=== PATIENT | female | born 1975 | race Caucasian/White ===

== ENCOUNTER 2019-01-23 13:15 | Outpatient (CLI) | payer OTHER | END 2019-01-23 13:16 | disposition home or self-care (01) | LOC: C.PAT 13:15 | DX: N13.30 Unspecified hydronephrosis (principal) ==

== ENCOUNTER 2019-02-10 07:01 | Day surgery (SDC) | payer OTHER ==
[2019-02-10 07:25] VITALS: BMI 26.2
[2019-02-10] MEDS ORDERED: Midazolam 2 MG/2 ML VIAL ONE (08:54)
[2019-02-10] MEDS ORDERED: Iohexol 240 (50 ml) ONE (08:54)
[2019-02-10] MEDS ORDERED: Ciprofloxacin 400mg/200ml D5W 400 MG/200 ML BAG IVPB ONE (08:54)
[2019-02-10] MEDS ORDERED: Propofol 10 mg/ml Inj (20 ML) ONE ×2 (08:54→09:23)
[2019-02-10] MEDS ORDERED: Lidocaine 2% Jelly (Uro-Jet) ONE (08:55)
[2019-02-10] MEDS ORDERED: Iohexol 240 200 ML ONE (08:57)
[2019-02-10] MEDS ORDERED: Lidocaine Hydrochloride 5 ML INJ ONE (09:23)
[2019-02-10] MEDS ORDERED: HYDROmorphone 0.5 mg/0.5 ml ISec IVP PRN (09:34)
--- NOTE | 2019-02-10 09:53 | PCM.SURG1 ---
Surgeon's Initial Post Op Note - Surgeon's Notes Surgeon: Madai Marquez Crtts: none Type of Anesthesia: IV Sedation Pre-Operative Diagnosis: Hydronephrosis, bilat. Colon ca Operative Findings: same Post-Operative Diagnosis: same Operation Performed: R nephrotogram. Cysto, bilat rtg pyelogtram. Bilat stent exchange. EUA Specimen/Specimens Removed: stents. stone Estimated Blood Loss: EBL {In ML}: 0 Blood Products Given: N/A Post-Op Condition: Good Date of Surgery/Procedure: 02/10/19 Time of Surgery/Procedure: 09:40
[2019-02-10 11:17] VITALS: O2SAT 99
[2019-02-10 15:06] VITALS: BP 111/62; PULSE 68; RESP 17; TEMP 98
--- NOTE | 2019-02-10 16:43 | RAD ---
Date of service: 02/10/2019 HISTORY: [place] HYDRONEPHROSIS COMPARISON: None available. TECHNIQUE: 1 view obtained. FINDINGS: Bilateral ureteral stents. External right-sided nephrostomy tube. No coarse calcifications evident in the expected locations of the renal shadows or ureteral courses. Tiny abdominal surgical coils/clips evident. Nonspecific bowel gas pattern. No acute osseous abnormality is detected. Please note external artifact projecting across the lower pelvis which limits evaluation. IMPRESSION: No acute findings identified. Incidental findings as above.
--- NOTE | 2019-02-10 22:44 | OP ---
PROCEDURE DATE: 02/10/2019 PREOPERATIVE DIAGNOSES: Hydronephrosis. Colon carcinoma. POSTOPERATIVE DIAGNOSES: Hydronephrosis. Colon carcinoma. Pelvic mass. PROCEDURE: Right nephrostogram. Cystoscopy. Bilateral stent removal with bilateral retrograde pyelogram. Bilateral ureteral stent insertion. Exam under anesthesia/anorectal examination/bimanual examination. DESCRIPTION OF PROCEDURE: Procedure as follows. The patient received perioperative antibiotics. The patient was placed in lithotomy position. The genitalia prepped and draped sterilely. Procedure was performed under fluoroscopic control. Sedation was applied by the anesthesiologist. A managed services sales consultant film of the abdomen was obtained. Iodinated contrast dye was instilled via the right nephrostomy tube. There was noted to be mild hydronephrosis. There was contrast noted in the ureter adjacent to the right ureteral stent. There was no contrast noted within the bladder. The patient was then placed in lithotomy position. Genitalia prepped and draped sterilely. A 22-Dutch cystoscope sheath was introduced with obturator. The bladder was emptied. The procedure was performed under videoendoscopic control as well as under fluoroscopic control. Urethra and bladder were inspected. There was no bladder tumor. There was no bladder stone. The bladder mucosa demonstrated mild inflammation. Bilateral ureteral stents were identified. The left ureteral stent was grasped with rigid grasping forceps and delivered through the urethral meatus along with cystoscope sheath. The stent was a 4.8 Dutch size stent. A 0.035-inch guidewire was inserted into the sent up to the level of the kidney. Iodinated contrast dye was instilled via an open-ended catheter inserted over the guidewire. The retrograde pyelogram demonstrated ulhl-bo-lhonyihm hydronephrosis. The guidewire was reinserted. A new 7-Dutch multilength stent was inserted over the guidewire. Proper stent position was confirmed with fluoroscopy and endoscopy. Attention was then turned toward the right side. The right ureteral stent was identified through the cystoscope. The stent was grasped with rigid grasping forceps and delivered along with cystoscope sheath to level of the urethral meatus. A 0.035-inch guidewire was inserted into the 6-Dutch stent up to level of kidney. The open-ended catheter inserted over the guidewire after the stent was removed. Retrograde pyelogram demonstrated moderate right hydronephrosis. The guidewire was reinserted. A new multilength stent was inserted over the guidewire. An 8-Dutch stent was inserted over the guidewire. Proper stent position was confirmed on the right with fluoroscopy and endoscopy. The guidewire was removed and stent was left in place. The bladder was reinspected and confirmed the above findings. The bladder was then drained, cystoscope sheath removed. Exam under anesthesia/anorectal examination/bimanual examination was performed. There was a pelvic mass. The mass appeared to be arising posterior to the bladder. This may represent the colon and/or uterine mass. The mass was mobile and firm approximately 8-10 cm in size. The patient was returned to supine position. The patient tolerated the procedure without complication. The nephrostomy tube was left clamped. [place] MD Jimmy cc: Radu Jeffrey MD
--- NOTE | 2019-02-11 13:14 | RAD ---
PROCEDURE: HISTORY: As above COMPARISON: 02/10/2019 at 0848 hr None TECHNIQUE: Total fluoroscopic time utilized during the procedure: 69.7 seconds ; 1.56 mGy cm 2 FINDINGS: Submitted images from the current procedure: 5 Right nephrostomy tube in place. Bilateral ureteral stents in place. Surgical change sutures noted left lateral to the L4 vertebral body and cephalad to the left SI joint. Medial deviation of the mid/proximal right ureter-etiology of this fusion on-correlation with any known inferior pole congenital fusion anomalies and/or retroperitoneal fibrosis. Correlation is recommended with any prior outside studies the known pre existing medical history.. 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 Please refer to the physician's notes performing the procedure. IMPRESSION: Findings as noted above. Correlate clinically
== END 2019-02-10 14:45 | disposition home or self-care (01) ==
LOC: C.SDS 07:01
PROVIDERS: ATTEND Urology
DX: N13.30 Unspecified hydronephrosis (principal); C18.9 Malignant neoplasm of colon, unspecified; R19.00 Intra-abdominal and pelvic swelling, mass and lump, unspecified site
CPT/HCPCS: 52310; 74018; 82365; 88300; C1758; C1769; C2617; J0744; J1170; Q9966